=== PATIENT | female | born 1970 | race Hispanic/Latino ===

== ENCOUNTER → 2024-12-13 | Outpatient (CLI) | payer OTHER ==
[2024-12-13 08:04] LABS: IMMATURE GRANULOCYTE ABSOLUTE 0.02 K/uL (0-1); NUCLEATED RED BLOOD CELLS 0.0 % (0.0-0.19); PLATELET COUNT (AUTO) 286 K/uL (130-400); RED BLOOD CELL COUNT(AUTO) 4.72 MIL/uL (4.00-5.50); RED CELL DISTRIBUTION WIDTH 11.8 % (11.0-15.5); WHITE BLOOD COUNT (AUTO) 8.1 K/uL (4.8-10.8)
[2024-12-13 08:16] LABS: ASPARTATE AMINOTRANSFERASE 12.0 U/L (10-37); CREATININE 0.5 mg/dL (0.5-1.0); GLOMERULAR FILTR. RATE CALC 112.0 mL/min (>90); GLUCOSE,RANDOM 184.0 mg/dL (70-105); SODIUM SERUM 137.0 mmol/L (136-145); TOTAL PROTEIN, SERUM 7.9 g/dL (6.0-8.3); UREA NITROGEN, BLOOD 19.0 mg/dL (7-18)
== END | disposition home or self-care (01) ==
LOC: LAB 07:24
PROVIDERS: ATTEND Internal Medicine Gastroenterology
DX: R10.9 Unspecified abdominal pain (principal)
CPT/HCPCS: 36415; 80053; 82150; 82784; 83013; 83516; 83690; 85025; 86231; 86364

== ENCOUNTER → 2024-12-20 | Outpatient (CLI) | payer OTHER ==
--- NOTE | 2024-12-20 22:17 | HMCIMG ---
EXAM: US Abdomen Complete CLINICAL HISTORY: Unspecified abdominal pain TECHNIQUE: Real-time ultrasound of the abdomen (complete) with image documentation. COMPARISON: None provided. FINDINGS: LIVER: Measures 16 cm in craniocaudal dimension. Normal echotexture and smooth surface contour. No focal hepatic lesion. Main portal vein demonstrates hepatopetal flow with a velocity of 15 cm/s. No intrahepatic biliary dilatation. GALLBLADDER: Gallbladder wall measures 2 mm. A gallstone is noted. No pericholecystic fluid or wall thickening. COMMON BILE DUCT: Measures 3 mm. No biliary dilatation. PANCREAS: Unremarkable where visualized. The distal pancreas is obscured by bowel gas. RIGHT KIDNEY: Measures 11.2 ??? 4.6 ??? 3.8 cm. Normal cortical echogenicity. No hydronephrosis or renal calculus. A parapelvic cyst measuring 8 ??? 6 mm is noted. LEFT KIDNEY: Measures 11.5 ??? 6.0 ??? 4.2 cm. Normal cortical echogenicity. No hydronephrosis or renal calculus. SPLEEN: Measures 12 cm in length. Normal echotexture. AORTA: Normal in caliber. No aneurysm. IVC: Patent and unremarkable. MISCELLANEOUS: No free fluid or ascites. IMPRESSION: * Cholelithiasis without sonographic evidence of cholecystitis. * Small right renal parapelvic cyst (8 ??? 6 mm). * Otherwise unremarkable abdominal ultrasound with normal hepatic size and hepatopetal portal venous flow. /[place]
== END | disposition home or self-care (01) ==
LOC: RAH 08:16
PROVIDERS: ATTEND Internal Medicine Gastroenterology
DX: K80.20 Calculus of gallbladder without cholecystitis without obstruction (principal); N28.1 Cyst of kidney, acquired; R10.9 Unspecified abdominal pain
CPT/HCPCS: 76700